=== PATIENT | female | born 1955 | race Caucasian/White ===

== ENCOUNTER → 2018-11-12 | Outpatient (CLI) | payer MEDICARE ==
--- NOTE | 2018-11-10 14:04 | NUR ---
ARRIVED PER WHEELCHAIR. TRANSFERED SELF TO RECLINER. PORT A CATH TO RIGHT UPPER CHEST. BARD POWER PORT. PORT ACCESSD FOR BLOOD DRAW FOR TYPE AND CROSS. PT HAS KNOWN PLATELET ANTIBIODIES. ORDR RECIEVED TO ADMINISTER SDPLT 2 UNITS ON Friday11/12/18. PORT ACCESSED WITH OUT DIFFICULTY. GOOD BRISK BLOOD RETURN NOTED WITH ASPERATION AND FLUSHED WITH EASE. JM FROM LAB HERE AND BLOOD DRAWN AND HANNDED OFF. PORT FLUSHED AND LEFT ACCESSED FOR USE WITH TRANSFUSION. DENEIS QUESTIONS OR NEEDS AT DISCHARGE.
[~2018-11-12] MED LIST: ADVAIR 250-501 EACH INH; DEFERASIROX PO; MUCINEX1200 MG PO; NEURONTIN 300300 M1 PO; NORCO 10-325 T1 EACH PO; PREDNISONE 20 M20 MG PO; SPIRIVA INH; ZYRTEC10 M4 PO
[2018-11-12 11:31] LABS: MCHC 34.8 g/dL (28.0-37.0)
[2018-11-12 11:33] LABS: HEMATOCRIT 27.4 % (37.0-47.0); HEMOGLOBIN 9.5 gm/dL (12.0-15.0); MCH 29.8 pg (26.0-34.0); MCV 85.7 fL (80.0-100.0); MPV 10.2 fl. (7.2-11.1); NUCLEATED RBCS 23 /100WBC; RDW-CV 16.5 % (10.5-14.5); WBC 3.6 thou/uL (4.0-11.0)
[2018-11-12 11:34] LABS: PLATELET COUNT* 4 thou/uL (150-400)
[2018-11-12 11:45] VITALS: BP 104/68; BP 130/96
[2018-11-12 12:15] LABS: ABSOLUTE LYMPHOCYTES 1.2 thou/uL (0.8-5.3); ABSOLUTE MONOCYTES 0.3 thou/uL (0.0-1.2); ATYPICAL LYMPHS 3 %; MYELOCYTES 2 %; PLATELET ESTIMATE DECREASED
[2018-11-12 12:16] LABS: ANISOCYTOSIS 1+; POIKILOCYTOSIS 1+; POLYCHROMASIA 1+
[2018-11-12 12:19] LABS: BLASTS 4 %
[2018-11-12 12:22] VITALS: BP 104/68; BP 108/63; BP 112/70
== END ==
LOC: M.INFUS 08:00
PROVIDERS: Internal Medicine Hematology & Oncology
DX: D46.22 Refractory anemia with excess of blasts 2 (principal); D69.6 Thrombocytopenia, unspecified

== ENCOUNTER → 2018-11-20 | Outpatient (CLI) | payer MEDICARE ==
[2018-11-20 11:44] VITALS: BP 101/46; BP 101/57; BP 102/58; BP 107/63
--- NOTE | 2018-11-20 11:55 | NUR ---
ARRIVED AMBULATORY. MADE SELF COMFORTABLE IN RECLINER. PORT A CATH ALREADY ACCESSED FROM USE AT [facility]. PORT PATENT WITH GOOD BLOOD RETURN AND EASY FLUSH. HISTORY REVIEWED AND CONSENT OBTAINED FOR BLOOD TRAQNSFUSION. VSS. TRANSFUSION OF PRBC STARTED AND RUNNING WELL. PRE MEDS PER ORDER.
[2018-11-20 13:44] VITALS: BP 100/43; BP 102/58; BP 107/63; BP 124/44
[2018-11-20 15:37] VITALS: BP 110/42; BP 112/69; BP 124/44
[2018-11-20 15:49] VITALS: BP 110/42; BP 112/55; BP 124/44
== END ==
LOC: M.INFUS 05:09
DX: D46.22 Refractory anemia with excess of blasts 2 (principal); D69.6 Thrombocytopenia, unspecified

== ENCOUNTER → 2018-11-26 | Outpatient (CLI) | payer MEDICARE ==
--- NOTE | 2018-11-24 15:25 | NUR ---
ARRIVED PER WHEELCHAIR. ORDER NOTED TO TYPE AND CROSS FOR 2 UNITS OF PLATELETS TO BE GIVEN 11/26/18. JM FROM LAB HERE AND BLOOD DRAWN FROM PORT A CATH. PORT FLUSHED AND LEFT ACCESSED FOR USE WITH FRIDAY'S TRANSFUSION. TOLERATED WELL. DENIES QUESTION OR NEEDS AT DISCHARGE.
[2018-11-26 11:28] VITALS: BP 106/64
[2018-11-26 11:46] LABS: HEMOGLOBIN 7.8 gm/dL (12.0-15.0); RDW-CV 15.7 % (10.5-14.5)
[2018-11-26 11:48] LABS: HEMATOCRIT 22.2 % (37.0-47.0); MCH 30.3 pg (26.0-34.0); MCHC 35.2 g/dL (28.0-37.0); MCV 86.1 fL (80.0-100.0); RBC 2.57 mil/uL (4.20-5.00)
[2018-11-26 11:51] LABS: PLATELET COUNT* < 3 thou/uL (150-400)
[2018-11-26 11:52] VITALS: BP 101/57; BP 116/64
[2018-11-26 11:52] LABS: WBC 1.6 thou/uL (4.0-11.0)
--- NOTE | 2018-11-26 12:34 | NUR ---
ARRIVED PER WHEELCHAIR. TRANSFERED SELF TO RECLINER. PORT TO RIGHT CHEST INTACT AND PATENT. PRE MED PER ORDER. 2 UNITS HLA MATCHED PLATELET COMPLETED AND TOLERATED WELL. PORT FLUSHED AND DEACCESSED. DENIES QUESTIONS OR NEEDS AT DISCHARGE.
[2018-11-26 12:45] LABS: ABSOLUTE LYMPHOCYTES 0.6 thou/uL (0.8-5.3); ABSOLUTE MONOCYTES 0.1 thou/uL (0.0-1.2); ABSOLUTE NEUTROPHILS 0.8 thou/uL (1.6-8.1); MYELOCYTES 4 %
[2018-11-26 12:46] LABS: PLATELET ESTIMATE DECREASED
[2018-11-26 12:49] LABS: ANISOCYTOSIS 1+; BLASTS 6 %; HYPOCHROMASIA 1+; MACROCYTES Occasional; POIKILOCYTOSIS 1+
== END ==
LOC: M.LAB 11-24 09:00 → M.INFUS 02:16
PROVIDERS: Internal Medicine Hematology & Oncology
DX: D46.22 Refractory anemia with excess of blasts 2 (principal); D69.6 Thrombocytopenia, unspecified

== ENCOUNTER → 2018-12-01 | Outpatient (CLI) | payer MEDICARE ==
[2018-12-01 10:22] VITALS: BP 106/59; BP 113/64; BP 98/56
[2018-12-01 12:15] VITALS: BP 100/58; BP 108/70; BP 110/62; BP 113/64; BP 114/55
--- NOTE | 2018-12-01 14:56 | NUR ---
PORT A CATH LEFT ACCESSED FOR USE LATER IN WEEK. BISHOP QUESTIONS OR NEEDS AT DISCHARGE.
== END ==
LOC: M.INFUS 04:57
DX: D46.22 Refractory anemia with excess of blasts 2 (principal); D69.6 Thrombocytopenia, unspecified

== ENCOUNTER → 2018-12-03 | Outpatient (CLI) | payer MEDICARE ==
[2018-12-03 10:55] VITALS: BP 100/58; BP 93/43
[2018-12-03 11:09] LABS: HEMOGLOBIN 8.8 gm/dL (12.0-15.0); RDW-CV 15.3 % (10.5-14.5)
[2018-12-03 11:10] LABS: HEMATOCRIT 25.1 % (37.0-47.0); MCHC 35.2 g/dL (28.0-37.0); MCV 85.3 fL (80.0-100.0); MPV 10.4 fl. (7.2-11.1); RBC 2.95 mil/uL (4.20-5.00); WBC 4.5 thou/uL (4.0-11.0)
[2018-12-03 11:20] VITALS: BP 100/58; BP 93/43; BP 99/61
--- NOTE | 2018-12-03 12:02 | NUR ---
ARRIVED AMBULATORY. MADE SELF COMFORTABLE. TRANSFUSION OF 2 UNITS OF PLATELET COMPLETED AND TOELRATED WELL. PORT FLUSHED AND DEACCESSED. DENEIS QUESTIONS OR NEEDS AT DISCHARGE.
== END ==
LOC: M.INFUS 05:29
PROVIDERS: Internal Medicine Hematology & Oncology
DX: D46.22 Refractory anemia with excess of blasts 2 (principal); D69.6 Thrombocytopenia, unspecified

== ENCOUNTER → 2018-12-08 | Outpatient (CLI) | payer MEDICARE ==
[2018-12-08 11:07] LABS: HEMOGLOBIN 8.6 gm/dL (12.0-15.0); MCH 29.5 pg (26.0-34.0)
[2018-12-08 11:09] LABS: HEMATOCRIT 25.4 % (37.0-47.0); MCV 86.9 fL (80.0-100.0); MPV 9.4 fl. (7.2-11.1); RBC 2.93 mil/uL (4.20-5.00); RDW-CV 15.9 % (10.5-14.5); WBC 8.2 thou/uL (4.0-11.0)
== END ==
LOC: M.INFUS 07:51
PROVIDERS: Internal Medicine Hematology & Oncology
DX: D46.22 Refractory anemia with excess of blasts 2 (principal); D69.6 Thrombocytopenia, unspecified

== ENCOUNTER → 2018-12-10 | Outpatient (CLI) | payer MEDICARE ==
[2018-12-10 10:48] LABS: HEMOGLOBIN 8.1 gm/dL (12.0-15.0)
[2018-12-10 10:49] LABS: MCH 29.4 pg (26.0-34.0); MCHC 33.8 g/dL (28.0-37.0); MPV 9.1 fl. (7.2-11.1); RBC 2.75 mil/uL (4.20-5.00); WBC 10.5 thou/uL (4.0-11.0)
[2018-12-10 11:12] VITALS: BP 110/61; BP 119/57
[2018-12-10 11:29] VITALS: BP 110/61; BP 119/57; BP 120/92
[2018-12-10 11:59] VITALS: BP 112/58; BP 112/75; BP 117/61; BP 119/57; BP 120/92
[2018-12-10 14:02] VITALS: BP 112/67; BP 112/75; BP 117/61; BP 128/65
--- NOTE | 2018-12-10 16:31 | NUR ---
ARRIVED PER WHEELCHAIR. REPORT FATIGUE. REQUESTING 2 UNITS PRBC AFTER PLATELET TRANSFUSION. CBC DRAWN PER ORDER. CRITICAL LABS CALLED TO DR. ADAMS. NEW ORDER RECIEVED TO ADMINISTER 2 UNITS PRBC IN ADDITION TO PLATLETS. PORT A CATH INTACT AND PATENT. ALL BLOOD PRODUCTS TRANSFUSED WITH OUT DIFFICULTY OR ADVERSE REACTION. PT REPORT FEELING BETTER. PORT FLUSHED AND DEACCESSED. DENIES QUESTIONS OR NEEDS AT DISCHARGE.
== END ==
LOC: M.INFUS 05:15
PROVIDERS: Internal Medicine Hematology & Oncology
DX: D46.22 Refractory anemia with excess of blasts 2 (principal); D69.6 Thrombocytopenia, unspecified

== ENCOUNTER → 2018-12-17 | Outpatient (CLI) | payer MEDICARE ==
--- NOTE | 2018-12-14 17:05 | NUR ---
1705 10 ML BLOOD ASPIRATED VIA ACCESSED PORTACATH. LABS DRAWN FOR BBK. PORTACATH FLUSHED WITH 20 ML SALINE. THEN PACKED WITH 5 ML 1:100 HEPARIN AND CLAMPED. PATIENT INSTRUCTED TO TELL INFUSION NURSE THAT HER PORT IS PACKED WITH HEPARIN.
[2018-12-17 15:12] VITALS: BP 115/58; BP 120/62
[2018-12-17 15:14] LABS: HEMOGLOBIN 8.4 gm/dL (12.0-15.0); MCV 85.2 fL (80.0-100.0); RDW-CV 15.9 % (10.5-14.5)
[2018-12-17 15:16] LABS: HEMATOCRIT 23.5 % (37.0-47.0); MCH 30.5 pg (26.0-34.0); MCHC 35.9 g/dL (28.0-37.0); MPV 11.5 fl. (7.2-11.1); RBC 2.76 mil/uL (4.20-5.00); WBC 6.4 thou/uL (4.0-11.0)
[2018-12-17 15:33] VITALS: BP 115/58; BP 124/64
== END ==
LOC: M.INFUS 05:31 → M.LAB 10:30 → M.INFUS 10:30
PROVIDERS: Internal Medicine Hematology & Oncology
DX: D46.22 Refractory anemia with excess of blasts 2 (principal); D69.6 Thrombocytopenia, unspecified

== ENCOUNTER → 2018-12-20 | Outpatient (CLI) | payer MEDICARE ==
--- NOTE | 2018-12-20 14:12 | NUR ---
RIGHT SIDED PORT ACCESSED WITHOUT DIFFICULTY. lABS DRAWN. POR LEFT ACCESSED, PACKED WITH 500 UNITS OF HEPARIN. PORT DRESSED IN A STERILE FASHION. PATIENT TOLERATED PROCEDURE WELL
== END ==
LOC: M.INFUS 07:00 → M.LAB 13:14
DX: D46.22 Refractory anemia with excess of blasts 2 (principal); D69.6 Thrombocytopenia, unspecified

== ENCOUNTER → 2018-12-21 | Outpatient (CLI) | payer MEDICARE ==
[2018-12-21 09:27] LABS: HEMATOCRIT 21.2 % (37.0-47.0); HEMOGLOBIN 7.5 gm/dL (12.0-15.0); RBC 2.5 mil/uL (4.20-5.00)
[2018-12-21 09:29] LABS: MCH 30.2 pg (26.0-34.0); MCHC 35.5 g/dL (28.0-37.0); MCV 85.1 fL (80.0-100.0); MPV 8.1 fl. (7.2-11.1); RDW-CV 15.6 % (10.5-14.5); WBC 4.1 thou/uL (4.0-11.0)
[2018-12-21 09:40] VITALS: BP 117/68; BP 127/64; BP 127/87
[2018-12-21 11:36] VITALS: BP 127/67; BP 128/74; BP 132/70; BP 139/62
--- NOTE | 2018-12-21 15:18 | NUR ---
ARRIVED AMBULATORY. PORT A CATH ALREADY ACCESSED. PORT PATENT AND INTACT. GAUZE DRESSING NOTED UNDER TRANSPARENT DRESSING. DRESSING CHANGE COMPLETED AND GAUZE REMOVED. 2 UNITS PRBC TRANSFUSION COMPELTED AND TOELRATED WELL. UP TO RESTROOM X3 POST LASIX. 100% OF LUNCH EATEN. DENIES QUESTIONS OR NEEDS AT DISCHARGE.
== END ==
LOC: M.INFUS 01:55
PROVIDERS: Internal Medicine Hematology & Oncology
DX: D46.22 Refractory anemia with excess of blasts 2 (principal); D69.6 Thrombocytopenia, unspecified

== ENCOUNTER → 2018-12-23 | Outpatient (CLI) | payer MEDICARE ==
[2018-12-23 12:15] VITALS: BP 132/70; BP 137/74
[2018-12-23 12:44] VITALS: BP 104/76; BP 137/74
--- NOTE | 2018-12-23 13:42 | NUR ---
ARRIVED PER WHEELCHAIR. TRANSFERED SELF TO RECLINER WITH EASE. PORT A CATH INTACT AND PATENT. PREMED PER ORDER. 2 UNIT HLA MATCHED PLATELET TRANSFUSION COMPLETED AND TOLERATED WELL. PORT FLUSHED AND LEFT ACCESSED PT [facility]. DENIES QUESTIONS OR NEEDS AT DISCHARGE.
== END ==
LOC: M.INFUS 05:24
DX: D46.22 Refractory anemia with excess of blasts 2 (principal); D69.6 Thrombocytopenia, unspecified

== ENCOUNTER → 2018-12-24 | Outpatient (CLI) | payer MEDICARE ==
[2018-12-24 13:59] LABS: HEMATOCRIT 26.2 % (37.0-47.0); HEMOGLOBIN 9.3 gm/dL (12.0-15.0); MCH 29.6 pg (26.0-34.0); MCHC 35.5 g/dL (28.0-37.0); MCV 83.5 fL (80.0-100.0); MPV 8.3 fl. (7.2-11.1); RBC 3.14 mil/uL (4.20-5.00); RDW-CV 15.8 % (10.5-14.5); WBC 3.5 thou/uL (4.0-11.0)
--- NOTE | 2018-12-24 14:12 | NUR ---
ARRIVED AMBULATORY. MADE SELF COMFORTABLE IN RECLINER. LABS DRAWN AND RESULTS EVALUATED. CRITICAL LABS CALLED TO DR. ADAMS. DENIES NEEDS AT DISCHARGE.
== END ==
LOC: M.INFUS 13:36 → M.LAB 14:00
PROVIDERS: Internal Medicine Hematology & Oncology
DX: D46.9 Myelodysplastic syndrome, unspecified (principal)

== ENCOUNTER → 2018-12-26 | Outpatient (CLI) | payer MEDICARE | LOC: M.LAB 16:04 | DX: D46.22 Refractory anemia with excess of blasts 2 (principal); D69.6 Thrombocytopenia, unspecified ==

== ENCOUNTER → 2018-12-29 | Outpatient (CLI) | payer MEDICARE ==
[2018-12-29 12:59] VITALS: BP 104/56; BP 108/76
[2018-12-29 13:05] LABS: HEMOGLOBIN 8.7 gm/dL (12.0-15.0)
[2018-12-29 13:07] LABS: HEMATOCRIT 24.5 % (37.0-47.0); MCH 29.7 pg (26.0-34.0); MCHC 35.7 g/dL (28.0-37.0); MCV 83.2 fL (80.0-100.0); MPV 10.4 fl. (7.2-11.1); NUCLEATED RBCS 11 /100WBC; RBC 2.94 mil/uL (4.20-5.00); RDW-CV 15.5 % (10.5-14.5)
[2018-12-29 13:09] LABS: PLATELET COUNT* 4 thou/uL (150-400)
[2018-12-29 13:22] VITALS: BP 106/78; BP 108/76; BP 110/74
[2018-12-29 13:28] LABS: ABSOLUTE EOSINOPHILS 0.2 thou/uL (0.0-0.7); ABSOLUTE LYMPHOCYTES 1.3 thou/uL (0.8-5.3); ABSOLUTE MONOCYTES 0.6 thou/uL (0.0-1.2); ANISOCYTOSIS 1+; BLASTS 1 %; MYELOCYTES 2 %; PLATELET ESTIMATE DECREASED; POIKILOCYTOSIS 1+; POLYCHROMASIA Occasional
== END ==
LOC: M.INFUS 05:24
PROVIDERS: Internal Medicine Hematology & Oncology
DX: D46.22 Refractory anemia with excess of blasts 2 (principal); D69.6 Thrombocytopenia, unspecified

== ENCOUNTER 2019-02-19 15:04 | Inpatient (IN) | payer MEDICARE ==
[~2019-02-19] VITALS: Ht 165.1 cm; Wt 83.0 kg
[2019-02-19 15:09] VITALS: BP 134/71
--- NOTE | 2019-02-19 16:45 | NUR ---
PORT ACCESSED BY CATHERINE MOSER FROM INFUSION.
[2019-02-19 16:49] LABS: HEMOGLOBIN 7.6 gm/dL (12.0-15.0); WBC 2.7 thou/uL (4.0-11.0)
[2019-02-19 16:51] LABS: HEMATOCRIT 21.4 % (37.0-47.0); MCHC 35.7 g/dL (28.0-37.0); MCV 81.2 fL (80.0-100.0); MPV 7.6 fl. (7.2-11.1); NUCLEATED RBCS 10 /100WBC; RBC 2.63 mil/uL (4.20-5.00); RDW-CV 14.7 % (10.5-14.5)
[2019-02-19 16:54] LABS: PLATELET COUNT* 6 thou/uL (150-400)
[2019-02-19 16:58] LABS: CALCIUM 8.6 mg/dL (8.5-10.1); CREATININE 0.9 mg/dL (0.6-1.3); POTASSIUM 4.1 mmol/L (3.5-5.1)
[2019-02-19 17:02] LABS: APTT 53.9 Seconds (25.0-31.3); INR 1.1; PROTIME 11.4 Seconds (9.20-11.50)
[2019-02-19 17:09] LABS: TOTAL BILIRUBIN 0.6 mg/dL (<0.1-1.0); TOTAL PROTEIN 7.6 g/dL (6.4-8.2)
[2019-02-19 17:24] LABS: ABSOLUTE EOSINOPHILS 0.1 thou/uL (0.0-0.7); ABSOLUTE LYMPHOCYTES 0.9 thou/uL (0.8-5.3); ABSOLUTE MONOCYTES 0.2 thou/uL (0.0-1.2); ABSOLUTE NEUTROPHILS 1.4 thou/uL (1.6-8.1); MYELOCYTES 11 %; PROMYELOCYTES 1 %
[2019-02-19 17:25] LABS: PLATELET ESTIMATE DECREASED
[2019-02-19 17:27] LABS: ANISOCYTOSIS 2+; POLYCHROMASIA 2+
[2019-02-19 17:37] LABS: BLASTS 8 %
[2019-02-19 18:22] VITALS: BP 122/71
[2019-02-19 18:50] VITALS: BP 104/55
--- NOTE | 2019-02-19 18:50 | NUR ---
PATIENT TO ROOM 310 FROM ER. ALERT AND ORIENTED X 4. VITALS STABLE. DR. FRANK TO BE PAGED FOR POSSIBLE TRANSFUSION ORDERS. REG DIET. AT BEDSIDE. PAC SL AT THIS TIME. ORIENTED TO CALL LIGHT. CALL LIGHT WITHIN REACH, WILL CONTINUE TO MONITOR.
[2019-02-19 20:39] VITALS: BP 103/54; BP 123/64; BP 128/63; BP 99/58
[2019-02-19 23:17] VITALS: BP 119/72; BP 120/66; BP 120/67; BP 121/67; BP 123/64
--- NOTE | 2019-02-20 05:36 | NUR ---
PATIENT SLEPT PART OF THE NIGHT. PATIENT RECEIVED 2 UNITS OF BLOOD WITH NO ADVERSE REACTIONS. PATIENT WAS GIVEN PAIN MEDICINE ONCE THIS SHIFT. WILL CONTINUE TO MONITOR.
[2019-02-20 08:05] VITALS: BP 106/70
[2019-02-20 12:18] VITALS: BP 102/60; BP 130/108
[2019-02-20 12:45] LABS: HEMOGLOBIN 9.3 gm/dL (12.0-15.0); MCV 82.4 fL (80.0-100.0); WBC 2.4 thou/uL (4.0-11.0)
[2019-02-20 12:47] LABS: HEMATOCRIT 26.4 % (37.0-47.0); MCH 29.1 pg (26.0-34.0); MCHC 35.3 g/dL (28.0-37.0); MPV 12.8 fl. (7.2-11.1); RBC 3.21 mil/uL (4.20-5.00); RDW-CV 15.2 % (10.5-14.5)
[2019-02-20 12:55] LABS: PLATELET COUNT* < 3 thou/uL (150-400)
[2019-02-20 13:15] VITALS: BP 102/60; BP 103/61; BP 113/51
[2019-02-20 16:13] VITALS: BP 103/66
--- NOTE | 2019-02-20 17:26 | NUR ---
PATIENT RESTING IN BED. PATIENT IS UP AD JAJA IN ROOM. PATIENT DENIES ANY PAIN. PATIENT HAD 2 UNITS OF PLATELETS THIS AFTERNOON WITHOUT INCIDENT. PATIENT HAS GOOD APPETITE. PATIENT DENIES ANY NEEDS AT THIS TIME. CALL LIGHT WITHIN REACH.
[2019-02-20 20:30] VITALS: BP 112/40
--- NOTE | 2019-02-21 05:44 | NUR ---
PATIENT SLEPT PART OF THE NIGHT. PATIENT WAS GIVEN PAIN MEDICINE ONCE. PATIENT IS POSSIBLY GOING HOME TODAY. WILL CONTINUE TO MONITOR.
[2019-02-21 08:15] VITALS: BP 107/61
[2019-02-21 09:54] LABS: HEMOGLOBIN 9.4 gm/dL (12.0-15.0); WBC 2.3 thou/uL (4.0-11.0)
[2019-02-21 09:56] LABS: MCH 28.6 pg (26.0-34.0); MCHC 34.7 g/dL (28.0-37.0); MCV 82.3 fL (80.0-100.0); MPV 8.9 fl. (7.2-11.1); RBC 3.27 mil/uL (4.20-5.00); RDW-CV 15.1 % (10.5-14.5)
[2019-02-21 10:27] VITALS: BP 107/61
--- NOTE | 2019-02-21 11:14 | EKG ---
[place] [address] ELECTROCARDIOGRAM REPORT Name: JOSE MANUEL THOMAS [facility] Room: [address] ADM IN M.R.#: [id number] Admission: 02/19/19 Attend Phys: Margarito Chu Discharge: Date of : 51 Report #: [id number] THIS REPORT FOR: //name// [facility] ED Test Date: 2019-02-19 Test Time: 15:43:50 Pat Name: JOSE MANUEL THOMAS Department: Room: [facility] Gender: F Folder Gluer Operator: : 1955 Requested By: Jones Ratliff Order Number: [id number] MD: Jv Rivera Measurements Intervals [place] Rate: 85 P: 72 [place]: 140 QRS: 38 QRSD: 79 T: 29 QT: 402 QTc: 478 Interpretive Statements Sinus rhythm Low voltage, precordial leads Abnormal R-wave progression, early transition Borderline T abnormalities, anterior leads No previous ECG available for comparison Electronically Signed On 02-21-2019 11:14:40 CLOTHES SEPARATOR by Jv Rivera [email or web address] <ELECTRONICALLY SIGNED> By: Jv Rivera MD, FACC 02/21/19 1114 1543 1543 Jv Rivera MD, FAC /EPI
[2019-02-21] MEDS ORDERED: NORCO 10-325 T1 EACH PO (11:34)
--- NOTE | 2019-02-21 12:00 | NUR ---
PATIENT DISCHARGED TO HOME. DISCHARGE PAPERS REVIEWED AND SIGNED. PRESCRIPTION AND INFORMATION SHEETS GIVEN. PORT PACKED WITH HEPARIN AND DEACCESSED. PATIENT DENIES ANY FURTHER NEEDS. PATIENT TAKEN BY WHEELCHAIR TO EXIT. LEFT WITH .
== END 2019-02-21 12:00 | disposition home or self-care (01) | DRG 811 ==
LOC: M.ERS 15:04 → M.TBA-ER 17:24 → M.3W 18:36
PROVIDERS: Family Medicine; ADMIT Internal Medicine
PROC: 30233N1 Transfusion of Nonautologous Red Blood Cells into Peripheral Vein, Percutaneous Approach (ICD-10-PCS; principal; 2019-02-19)
PROC: 30233R1 Transfusion of Nonautologous Platelets into Peripheral Vein, Percutaneous Approach (ICD-10-PCS; 2019-02-20)
DX: D46.9 Myelodysplastic syndrome, unspecified (principal); D61.810 Antineoplastic chemotherapy induced pancytopenia; M72.6 Necrotizing fasciitis; E44.0 Moderate protein-calorie malnutrition; T45.4X5A Adverse effect of iron and its compounds, initial encounter; F17.210 Nicotine dependence, cigarettes, uncomplicated; J45.909 Unspecified asthma, uncomplicated; M79.89 Other specified soft tissue disorders; T45.1X5A Adverse effect of antineoplastic and immunosuppressive drugs, initial encounter; Z90.710 Acquired absence of both cervix and uterus; Z90.49 Acquired absence of other specified parts of digestive tract; Z93.2 Ileostomy status; Z88.8 Allergy status to other drugs, medicaments and biological substances; Y92.89 Other specified places as the place of occurrence of the external cause; Z68.30 Body mass index [BMI] 30.0-30.9, adult

== ENCOUNTER 2019-03-01 19:05 | Inpatient (IN) | payer MEDICARE ==
[~2019-03-01] VITALS: Ht 165.1 cm; Wt 84.4 kg
[2019-03-01 19:31] VITALS: BP 101/59
[2019-03-01 20:00] LABS: MCH 28.1 pg (26.0-34.0)
[2019-03-01 20:01] LABS: MCHC 33.9 g/dL (28.0-37.0); MPV 9.6 fl. (7.2-11.1); NUCLEATED RBCS 29 /100WBC; RBC 2.05 mil/uL (4.20-5.00); RDW-CV 15.6 % (10.5-14.5); WBC 16.9 thou/uL (4.0-11.0)
[2019-03-01 20:04] LABS: HEMOGLOBIN 5.8 gm/dL (12.0-15.0); PLATELET COUNT* 4 thou/uL (150-400)
[2019-03-01 20:06] LABS: CALCIUM 8.1 mg/dL (8.5-10.1); CREATININE 1.2 mg/dL (0.6-1.3); POTASSIUM 4.6 mmol/L (3.5-5.1)
[2019-03-01 20:17] LABS: ALBUMIN 2.8 g/dL (3.4-5.0); TOTAL BILIRUBIN 0.9 mg/dL (<0.1-1.0); TOTAL PROTEIN 6.9 g/dL (6.4-8.2)
[2019-03-01 20:23] LABS: INR 1.2; PROTIME 12.6 Seconds (9.20-11.50)
[2019-03-01 20:43] LABS: ABSOLUTE LYMPHOCYTES 5.9 thou/uL (0.8-5.3); ABSOLUTE MONOCYTES 0.3 thou/uL (0.0-1.2); ABSOLUTE NEUTROPHILS 9.6 thou/uL (1.6-8.1); MYELOCYTES 10 %; PLATELET ESTIMATE DECREASED
[2019-03-01 20:44] LABS: BLASTS 6 %
[2019-03-01 20:46] LABS: POLYCHROMASIA 1+
[2019-03-01 21:33] LABS: URINE BILIRUBIN NEGATIVE (Negative); URINE BLOOD NEGATIVE (Negative); URINE CLARITY CLEAR; URINE COLOR YELLOW; URINE GLUCOSE-RANDOM NEGATIVE (Negative); URINE KETONES NEGATIVE (Negative); URINE LEUKOCYTES-REFLEX NEGATIVE (Negative); URINE NITRITE-REFLEX NEGATIVE (Negative); URINE PROTEIN NEGATIVE (Negative); URINE SPECIFIC GRAVITY 1.015 (1.005-1.030); URINE UROBILINOGEN 0.2 E.U./dl (0.2-1.0)
[2019-03-01 21:46] VITALS: BP 105/65
[2019-03-01 22:31] VITALS: BP 95/54
[2019-03-02] VITALS (22 sets, daily range): BP systolic 89–125; BP diastolic 36–76
[2019-03-02 06:03] LABS: MCH 29.3 pg (26.0-34.0); MCHC 34.3 g/dL (28.0-37.0); MCV 85.5 fL (80.0-100.0); MPV 9.1 fl. (7.2-11.1); NUCLEATED RBCS 28 /100WBC; RBC 2.03 mil/uL (4.20-5.00); RDW-CV 16.4 % (10.5-14.5); WBC 14.1 thou/uL (4.0-11.0)
[2019-03-02 06:07] LABS: HEMATOCRIT 17.4 % (37.0-47.0); PLATELET COUNT* 6 thou/uL (150-400)
[2019-03-02 07:49] LABS: ABSOLUTE EOSINOPHILS 0.8 thou/uL (0.0-0.7); ABSOLUTE MONOCYTES 1.1 thou/uL (0.0-1.2); METAMYELOCYTES 5 %; MYELOCYTES 9 %
[2019-03-02 07:50] LABS: ABSOLUTE LYMPHOCYTES 1.4 thou/uL (0.8-5.3); ATYPICAL LYMPHS 4 %
[2019-03-02 07:52] LABS: POLYCHROMASIA 2+
[2019-03-02 07:53] LABS: PLATELET ESTIMATE DECREASED
[2019-03-02 07:57] LABS: ANISOCYTOSIS 2+
[2019-03-02 07:58] LABS: HYPOCHROMASIA 3+
[2019-03-02 08:00] LABS: OVALOCYTES 1+; SCHISTOCYTES 1+
[2019-03-02 08:07] LABS: BLASTS 19 %
--- NOTE | 2019-03-02 09:55 | EKG ---
[place] [address] ELECTROCARDIOGRAM REPORT Name: JOSE MANUEL THOMAS MANNY Room: [address] ADM IN M.R.#: [id number] Admission: 03/01/19 Attend Phys: Lynda Parish Discharge: Date of : 51 Report #: [id number] THIS REPORT FOR: //name// [facility] ED Test Date: 2019-03-01 Test Time: 19:45:45 Pat Name: JOSE MANUEL THOMAS Department: Room: [facility] Gender: F Manufacturing Test Technician: [place] : 1955 Requested By: Kaelyn Medrano Order Number: [id number] MD: Jv Rivera Measurements Intervals [place] Rate: 100 P: 63 [place]: 136 QRS: 38 QRSD: 85 T: 34 QT: 345 QTc: 445 Interpretive Statements Sinus tachycardia nonspecific st changes Low voltage, extremity and precordial leads Abnormal R-wave progression, early transition Compared to ECG 02/19/2019 15:43:50 Sinus rhythm no longer present Electronically Signed On 03-02-2019 9:55:01 HAT LINING PASTER by Jv Rivera [email or web address] <ELECTRONICALLY SIGNED> By: Jv Rivera MD, FAC 03/02/19 0955 44 44 Jv Rivera MD, [facility] /EPI
[2019-03-02 19:18] LABS: HEMATOCRIT 24.4 % (37.0-47.0); HEMOGLOBIN 8.4 gm/dL (12.0-15.0); MCH 29.1 pg (26.0-34.0); MCHC 34.6 g/dL (28.0-37.0); MCV 84.2 fL (80.0-100.0); MPV 7.9 fl. (7.2-11.1); RBC 2.9 mil/uL (4.20-5.00); RDW-CV 15.5 % (10.5-14.5); WBC 15.1 thou/uL (4.0-11.0)
[2019-03-03] VITALS (21 sets, daily range): BP systolic 76–121; BP diastolic 40–69
[2019-03-03 05:27] LABS: HEMOGLOBIN 8.8 gm/dL (12.0-15.0); MCV 84.4 fL (80.0-100.0); RBC 3.02 mil/uL (4.20-5.00)
[2019-03-03 05:29] LABS: HEMATOCRIT 25.4 % (37.0-47.0); MCHC 34.4 g/dL (28.0-37.0); MPV 7.6 fl. (7.2-11.1); RDW-CV 16.1 % (10.5-14.5); WBC 13.4 thou/uL (4.0-11.0)
[2019-03-03 05:30] LABS: CALCIUM 7.4 mg/dL (8.5-10.1); CREATININE 0.8 mg/dL (0.6-1.3); MAGNESIUM 1.5 mg/dL (1.8-2.4); POTASSIUM 3.8 mmol/L (3.5-5.1)
[2019-03-03 12:23] LABS: HEMOGLOBIN 9.9 gm/dL (12.0-15.0); MCHC 34.9 g/dL (28.0-37.0)
[2019-03-03 12:24] LABS: HEMATOCRIT 28.3 % (37.0-47.0); MCH 30.1 pg (26.0-34.0); MPV 7.3 fl. (7.2-11.1); RBC 3.28 mil/uL (4.20-5.00); RDW-CV 16.1 % (10.5-14.5); WBC 23.1 thou/uL (4.0-11.0)
[2019-03-08 14:09] LABS: HEMOGLOBIN 5.8 g/dL (11.1-15.9)
== END 2019-03-03 13:40 | disposition home or self-care (01) | DRG 377 ==
LOC: M.ERS 19:05 → M.ICU 20:23 → M.TBA-ER 20:23 → M.ICU 22:12
PROVIDERS: Emergency Medicine; Internal Medicine; ADMIT Family Medicine
PROC: 30233N1 Transfusion of Nonautologous Red Blood Cells into Peripheral Vein, Percutaneous Approach (ICD-10-PCS; 2019-03-02)
PROC: 30233R1 Transfusion of Nonautologous Platelets into Peripheral Vein, Percutaneous Approach (ICD-10-PCS; 2019-03-02)
PROC: 0DJ08ZZ Inspection of Upper Intestinal Tract, Via Natural or Artificial Opening Endoscopic (ICD-10-PCS; principal; 2019-03-03)
DX: K29.71 Gastritis, unspecified, with bleeding (principal); N17.0 Acute kidney failure with tubular necrosis; D61.818 Other pancytopenia; E44.0 Moderate protein-calorie malnutrition; K76.6 Portal hypertension; F17.210 Nicotine dependence, cigarettes, uncomplicated; D46.9 Myelodysplastic syndrome, unspecified; J44.9 Chronic obstructive pulmonary disease, unspecified; K31.89 Other diseases of stomach and duodenum; Z88.8 Allergy status to other drugs, medicaments and biological substances; Z68.31 Body mass index [BMI] 31.0-31.9, adult; Z90.49 Acquired absence of other specified parts of digestive tract; Z93.2 Ileostomy status

== ENCOUNTER 2019-03-28 04:50 | Inpatient (IN) | payer MEDICARE ==
[2019-03-28] VITALS (44 sets, daily range): BP systolic 75–122; BP diastolic 18–68
[~2019-03-28] VITALS: Ht 165.1 cm; Wt 87.5 kg
[2019-03-28 05:26] LABS: URINE BILIRUBIN NEGATIVE (Negative); URINE BLOOD NEGATIVE (Negative); URINE CLARITY CLEAR; URINE COLOR YELLOW; URINE GLUCOSE-RANDOM NEGATIVE (Negative); URINE KETONES NEGATIVE (Negative); URINE LEUKOCYTES-REFLEX NEGATIVE (Negative); URINE NITRITE-REFLEX NEGATIVE (Negative); URINE PROTEIN NEGATIVE (Negative); URINE SPECIFIC GRAVITY 1.015 (1.005-1.030); URINE UROBILINOGEN 0.2 E.U./dl (0.2-1.0)
[2019-03-28 05:29] LABS: HEMOGLOBIN 8.2 gm/dL (12.0-15.0)
[2019-03-28 05:30] LABS: HEMATOCRIT 23.8 % (37.0-47.0); MCH 28.8 pg (26.0-34.0); MCHC 34.3 g/dL (28.0-37.0); MPV 9.1 fl. (7.2-11.1); NUCLEATED RBCS 14 /100WBC; RBC 2.83 mil/uL (4.20-5.00); RDW-CV 17.5 % (10.5-14.5)
[2019-03-28 05:35] LABS: PLATELET COUNT* 6 thou/uL (150-400)
[2019-03-28 05:38] LABS: CALCIUM 8.8 mg/dL (8.5-10.1); POTASSIUM 4.8 mmol/L (3.5-5.1)
[2019-03-28 05:49] LABS: ALBUMIN 2.8 g/dL (3.4-5.0); TOTAL PROTEIN 7.5 g/dL (6.4-8.2)
[2019-03-28 05:50] LABS: INR 1.2
[2019-03-28 07:07] LABS: ABSOLUTE LYMPHOCYTES 7.2 thou/uL (0.8-5.3); ABSOLUTE MONOCYTES 4.7 thou/uL (0.0-1.2); ABSOLUTE NEUTROPHILS 6.1 thou/uL (1.6-8.1); ATYPICAL LYMPHS 12 %; MYELOCYTES 1 %; PROMYELOCYTES 1 %
[2019-03-28 07:12] LABS: ANISOCYTOSIS 1+; PLATELET ESTIMATE DECREASED
[2019-03-28 07:14] LABS: POLYCHROMASIA 1+
[2019-03-28 11:27] LABS: RDW-CV 17.3 % (10.5-14.5)
[2019-03-28 11:28] LABS: MCH 28.2 pg (26.0-34.0); MCHC 33.7 g/dL (28.0-37.0); MCV 83.8 fL (80.0-100.0); MPV 8.6 fl. (7.2-11.1); RBC 2.34 mil/uL (4.20-5.00); WBC 13.3 thou/uL (4.0-11.0)
[2019-03-28 11:40] LABS: HEMATOCRIT 19.6 % (37.0-47.0); HEMOGLOBIN 6.6 gm/dL (12.0-15.0)
--- NOTE | 2019-03-28 12:21 | EKG ---
[place] [address] ELECTROCARDIOGRAM REPORT Name: JOSE MANUEL THOMAS Room: [address] ADM IN M.R.#: [id number] Admission: 03/28/19 Attend Phys: Rikki Nieves MD Discharge: Date of : 51 Report #: [id number] THIS REPORT FOR: //name// [facility] ED Test Date: 2019-03-28 Test Time: 05:03:37 Pat Name: JOSE MANUEL THOMAS Department: Room: [facility] Gender: F Wardrobe Specialty Worker: [place] : 1955 Requested By: Kaelyn Medrano Order Number: [id number] MD: Alen Le Measurements Intervals [place] Rate: 116 P: 79 [place]: 134 QRS: -17 QRSD: 112 T: QT: 383 QTc: 533 Interpretive Statements Sinus tachycardia Borderline intraventricular conduction delay Low voltage, extremity and precordial leads RSR' in V1 or V2, probably normal variant Minimal ST depression, diffuse leads Prolonged QT interval Baseline wander in lead(s) V3 Compared to ECG 03/01/2019 19:45:45 RSR' in V1 or V2 now present Prolonged QT interval now present ST (T wave) deviation still present Electronically Signed On 03-28-2019 12:20:56 DIRECTOR EMPLOYMENT by Alen Le [email or web address] <ELECTRONICALLY SIGNED> By: Dylan Le MD, [facility] 03/28/19 1220 0503 0503 Dylan Le MD, [facility] /EPI
[2019-03-28 19:38] LABS: HEMOGLOBIN 7.4 gm/dL (12.0-15.0); MCH 28.9 pg (26.0-34.0); MCHC 33.8 g/dL (28.0-37.0); MCV 85.3 fL (80.0-100.0); MPV 8.2 fl. (7.2-11.1); RBC 2.58 mil/uL (4.20-5.00); RDW-CV 17.4 % (10.5-14.5); WBC 13.8 thou/uL (4.0-11.0)
[2019-03-29] VITALS (28 sets, daily range): BP systolic 94–126; BP diastolic 37–79
[2019-03-29 04:48] LABS: CALCIUM 7.3 mg/dL (8.5-10.1); CREATININE 0.7 mg/dL (0.6-1.3); MAGNESIUM 1.2 mg/dL (1.8-2.4); RDW-CV 17.4 % (10.5-14.5); WBC 11.7 thou/uL (4.0-11.0)
[2019-03-29 04:51] LABS: MCH 29.7 pg (26.0-34.0); MCHC 34.5 g/dL (28.0-37.0); MCV 86.2 fL (80.0-100.0); MPV 8.7 fl. (7.2-11.1); RBC 2.67 mil/uL (4.20-5.00)
[2019-03-29 04:57] LABS: POTASSIUM 3.7 mmol/L (3.5-5.1)
--- NOTE | 2019-03-29 18:14 | CON ---
[address] [address] CONSULTATION Name: JOSE MANUEL THOMAS Room: [address] IN M.R.#: [id number] Admission: 03/28/19 Attend Phys: Rikki Nieves MD Discharge: Date of : 51 Report #: [id number] THIS REPORT FOR: //name// CC: Rikki Mcintoshgood DATE OF SERVICE: 03/28/2019 HISTORY OF PRESENT ILLNESS: This is a pleasant 63-year-old female with history of myelodysplastic syndrome, multiple cytopenias including thrombocytopenia, who is presenting with melenic stool from her ostomy. The patient reports that she was diagnosed with myelodysplastic syndrome 2 years back. Three years back, patient had severe anemia and had undergone multiple EGDs and colonoscopies. During one of the colonoscopies, the patient had a perforation, which led to the ostomy placement. The patient reports that since then reversal of the ostomy was not attempted. The patient reports that she does not have any abdominal pain, nausea, vomiting or diarrhea. She does begin noticing black colored output from her ostomy. PAST MEDICAL HISTORY: Significant for anemia, myelodysplastic syndrome, thrombocytopenia. PAST SURGICAL HISTORY: Significant for colonic resection secondary to perforation. SOCIAL HISTORY: The patient denies smoking, alcohol or recreational drug use. FAMILY HISTORY: No history of colon cancer or García-related neoplasia. REVIEW OF SYSTEMS: A comprehensive 10-point review of systems is negative except for what was mentioned in the HPI. PHYSICAL EXAMINATION: VITAL SIGNS: Temperature 36.6, pulse rate 106, blood pressure 103/52, respirations 21. GENERAL: The patient is alert, awake, oriented x 3. HEENT: Pupils are equal, round, reactive to light and accommodation. Mucous membranes are moist. There is no congestion. LUNGS: Clear to auscultation bilaterally. CARDIOVASCULAR: Rate and rhythm regular, S1, S2 present. ABDOMEN: Soft. Ostomy is seen in the right lower quadrant with black colored output seen. No tenderness, guarding or rigidity. EXTREMITIES: Warm, well perfused. LABORATORY DATA: Hemoglobin 8.2, hematocrit 23.8, platelet count 6, WBC count 18.0. The patient's baseline hemoglobin prior to her previous discharge was 9. [place] [address] CONSULTATION Name: JOSE MANUEL THOMAS [facility] Room: [address] [place] [facility].#: [id number] Admission: 03/28/19 Attend Phys: Rikki Nieves MD Discharge: Date of : 51 Report #: [id number] The patient had an EGD performed by Dr. Jackson during her previous admission a few weeks back. At that time, the EGD demonstrated diffuse gastritis suggestive of portal hypertensive gastropathy, but due to the lower level of her platelets, no biopsies were obtained. ASSESSMENT AND PLAN: Pleasant 63-year-old female with history of myelodysplastic syndrome, who is transfusion dependent with multiple cytopenias including thrombocytopenia, presenting with melenic output from the ostomy bag. The patient's platelet count is 6 and this precludes any role for endoscopy. I would keep her on a Protonix drip, transfuse to keep her hemoglobin above 8 and platelet count about 20. Preferably the platelet count should be more than 50 in setting of acute bleeding, but this goal may be difficult to achieve in the setting of her myelodysplastic syndrome. I would place the patient on a regular diet for now. Thank you for this consultation. <ELECTRONICALLY SIGNED> By: Luis Carter MD 03/29/19 1814 1142 [id number] Carter MD /nt
[2019-03-30] VITALS (11 sets, daily range): BP systolic 104–128; BP diastolic 43–83
[2019-03-30 05:10] LABS: HEMATOCRIT 23.1 % (37.0-47.0); MCH 29.8 pg (26.0-34.0); MCHC 34.6 g/dL (28.0-37.0); MCV 86.1 fL (80.0-100.0); RBC 2.68 mil/uL (4.20-5.00); RDW-CV 17.5 % (10.5-14.5); WBC 11.8 thou/uL (4.0-11.0)
[2019-03-30 05:20] LABS: CALCIUM 8.3 mg/dL (8.5-10.1); CREATININE 0.8 mg/dL (0.6-1.3); MAGNESIUM 1.2 mg/dL (1.8-2.4); POTASSIUM 3.5 mmol/L (3.5-5.1)
[2019-03-31 00:20] VITALS: BP 119/49
[2019-03-31 04:36] LABS: MAGNESIUM 2.1 mg/dL (1.8-2.4); POTASSIUM 4.4 mmol/L (3.5-5.1)
[2019-03-31 04:39] VITALS: BP 113/61
[2019-03-31 07:20] VITALS: BP 116/61
[2019-03-31 08:10] LABS: HEMOGLOBIN 7.5 gm/dL (12.0-15.0)
[2019-03-31 08:11] LABS: HEMATOCRIT 22.1 % (37.0-47.0); MCH 29.5 pg (26.0-34.0); MCHC 33.9 g/dL (28.0-37.0); MCV 86.8 fL (80.0-100.0); MPV 8.4 fl. (7.2-11.1); RBC 2.55 mil/uL (4.20-5.00); RDW-CV 17.8 % (10.5-14.5); WBC 10.6 thou/uL (4.0-11.0)
[2019-03-31 10:07] VITALS: BP 121/66; BP 135/110
[2019-03-31 12:44] LABS: HEMOGLOBIN 8.2 gm/dL (12.0-15.0)
[2019-03-31 12:46] LABS: MCH 29.7 pg (26.0-34.0); MCHC 34.2 g/dL (28.0-37.0); MCV 86.7 fL (80.0-100.0); MPV 7.6 fl. (7.2-11.1); NUCLEATED RBCS 57 /100WBC; RBC 2.77 mil/uL (4.20-5.00); RDW-CV 17.8 % (10.5-14.5); WBC 12.9 thou/uL (4.0-11.0)
[2019-03-31 14:29] LABS: ABSOLUTE LYMPHOCYTES 3.9 thou/uL (0.8-5.3); ABSOLUTE MONOCYTES 1.3 thou/uL (0.0-1.2); ABSOLUTE NEUTROPHILS 7.7 thou/uL (1.6-8.1); ATYPICAL LYMPHS 3 %; METAMYELOCYTES 8 %; MYELOCYTES 8 %; PROMYELOCYTES 1 %
[2019-03-31 14:31] LABS: PLATELET ESTIMATE DECREASED
[2019-03-31 14:32] LABS: ANISOCYTOSIS 2+
[2019-03-31 14:36] LABS: MACROCYTES Occasional; MICROCYTES Occasional; POLYCHROMASIA 1+
[2019-03-31 14:39] LABS: PLATELET COUNT* 37 thou/uL (150-400)
[2019-03-31 16:06] VITALS: BP 108/65
[2019-03-31] MEDS ORDERED: PROTONIX40 M1 PO (16:08)
[2019-03-31 16:33] VITALS: BP 108/65
== END 2019-03-31 16:45 | disposition home or self-care (01) | DRG 378 ==
LOC: M.ERS 04:50 → M.ICU 06:53 → M.TBA-ER 06:53 → M.ICU 08:12 → M.ORTHSURG 03-30 17:33
PROVIDERS: Emergency Medicine; Internal Medicine; Internal Medicine Hematology & Oncology; ADMIT Internal Medicine
PROC: 30233N1 Transfusion of Nonautologous Red Blood Cells into Peripheral Vein, Percutaneous Approach (ICD-10-PCS; principal; 2019-03-28)
PROC: 30233R1 Transfusion of Nonautologous Platelets into Peripheral Vein, Percutaneous Approach (ICD-10-PCS; principal; 2019-03-28)
DX: K29.01 Acute gastritis with bleeding (principal); K76.6 Portal hypertension; D69.3 Immune thrombocytopenic purpura; K31.89 Other diseases of stomach and duodenum; D46.9 Myelodysplastic syndrome, unspecified; E66.9 Obesity, unspecified; I95.9 Hypotension, unspecified; F17.210 Nicotine dependence, cigarettes, uncomplicated; Z90.710 Acquired absence of both cervix and uterus; Z90.49 Acquired absence of other specified parts of digestive tract; Z93.2 Ileostomy status; Z79.899 Other long term (current) drug therapy; Z88.8 Allergy status to other drugs, medicaments and biological substances; Z72.89 Other problems related to lifestyle; Z93.3 Colostomy status; Z68.32 Body mass index [BMI] 32.0-32.9, adult

== ENCOUNTER 2019-04-14 03:33 | Inpatient (IN) | payer MEDICARE ==
[~2019-04-14] VITALS: Ht 165.1 cm; Wt 87.3 kg
[2019-04-14] VITALS (9 sets, daily range): BP systolic 98–129; BP diastolic 36–77
[~2019-04-14 03:33] MED LIST changes: +PROTONIX40 M1 PO
[2019-04-14] MEDS ORDERED: ERYTHROMYCIN500 MG PO (03:44)
--- NOTE | 2019-04-14 04:02 | NUR ---
PT HAS R PAC THAT IS ACCESSED FROM RECIEIVING PLTS YESTERDAY.
[2019-04-14 04:22] LABS: MCH 29.9 pg (26.0-34.0); MCV 85.4 fL (80.0-100.0); NUCLEATED RBCS 12 /100WBC; RBC 2.27 mil/uL (4.20-5.00); RDW-CV 16.3 % (10.5-14.5); WBC 12.5 thou/uL (4.0-11.0)
[2019-04-14 04:30] LABS: CALCIUM 7.6 mg/dL (8.5-10.1); CREATININE 0.9 mg/dL (0.6-1.3); POTASSIUM 4.3 mmol/L (3.5-5.1)
[2019-04-14 04:31] LABS: HEMOGLOBIN 6.8 gm/dL (12.0-15.0)
[2019-04-14 04:32] LABS: HEMATOCRIT 19.4 % (37.0-47.0); PLATELET COUNT* 4 thou/uL (150-400)
[2019-04-14 04:35] LABS: ALBUMIN 2.6 g/dL (3.4-5.0); TOTAL BILIRUBIN 0.7 mg/dL (<0.1-1.0); TOTAL PROTEIN 7.3 g/dL (6.4-8.2)
[2019-04-14 05:12] LABS: INR 1.2; PROTIME 12.1 Seconds (9.20-11.50)
[2019-04-14 06:29] LABS: ABSOLUTE EOSINOPHILS 0.1 thou/uL (0.0-0.7); ABSOLUTE LYMPHOCYTES 2.3 thou/uL (0.8-5.3); ANISOCYTOSIS 1+; ATYPICAL LYMPHS 5 %; ATYPICAL MONONUCLEARS 1 %; BLASTS 1 %; HYPOCHROMASIA 1+; MYELOCYTES 3 %; PLATELET ESTIMATE DECREASED; POIKILOCYTOSIS 1+; POLYCHROMASIA Occasional; PROMYELOCYTES 1 %
--- NOTE | 2019-04-14 07:34 | NUR ---
RECEIVED REPORT FROM LAVENDER FARM WORKER PRUDENCE AT 0625. PT ARRIVED TO UNIT VIA BED AT 0655. PT AAOX4, SR ON SPORTS NUTRITIONIST. NURSING ASSESSMENT COMPLETED. PT VOICED NO CONCERNS. CALL LIGHT WITHIN REACH. NEGATIVE SEPSIS SCREENING. REPORT GIVEN TO OMEGA ALEXANDER.
--- NOTE | 2019-04-14 10:20 | EKG ---
[place] [address] ELECTROCARDIOGRAM REPORT Name: JOSE MANUEL THOMAS [facility] Room: [address] ADM IN M.R.#: [id number] Admission: 04/14/19 Attend Phys: Lynda Parish Discharge: Date of : 51 Report #: [id number] THIS REPORT FOR: //name// [facility] ED Test Date: 2019-04-14 Test Time: 03:51:39 Pat Name: JOSE MANUEL THOMAS Department: Room: [address] Gender: F Space Systems Operations Manager: [place] : 1955 Requested By: Kaelyn Medrano Order Number: [id number] Reading MD: Jv Rivera Measurements Intervals [place] Rate: 95 P: 62 [place]: 134 QRS: 34 QRSD: 58 T: 21 QT: 417 QTc: 525 Interpretive Statements Sinus rhythm Low voltage, precordial leads Borderline T abnormalities, anterior leads Prolonged QT interval Compared to ECG 03/28/2019 05:03:37 Sinus tachycardia no longer present Electronically Signed On 04-14-2019 10:20:27 FAMILY SUPPORT WORKER by Jv Rivera [email or web address] <ELECTRONICALLY SIGNED> By: Jv Rivera MD, [facility] 04/14/19 1020 0351 0351 Jv Rivera MD, [facility] /EPI
--- NOTE | 2019-04-14 17:27 | NUR ---
VSS, ASSUMED CARE IN THE AM, ASSESSMENT PERFORMED AND CHARTED, FALL PRECAUTIONS IN PLACE AND CALL LIGHT IN REACH, PT IS TRACING SR ON THE MONITOR, PT IS ON RA, DENIES ANY PAIN, HER GAOL IS TO RECIEVE BLOOD, PT IS UP AD JAJA, SHE HAS ILEOSTOMY, HER BAG FILLS UP WITH RED DARK BLOOD, WILL FOLLOW WITH PLAN OF CARE.
[2019-04-15] VITALS (7 sets, daily range): BP systolic 100–125; BP diastolic 43–65
[2019-04-15 05:21] LABS: MCH 29.3 pg (26.0-34.0); MCHC 35.3 g/dL (28.0-37.0); MPV 13.1 fl. (7.2-11.1); RBC 2.12 mil/uL (4.20-5.00); RDW-CV 16.9 % (10.5-14.5); WBC 11.8 thou/uL (4.0-11.0)
--- NOTE | 2019-04-15 05:36 | NUR ---
ASSUMED CARE OF PATIENT AT APPROX 1930. ALERT AND ORIENTED X4. ASESSMENT COMPLETED AND CHARTED. VSS ON ROOM AIR. COMPLAINT OF FOOT PAIN ADDRESSED WITH PERCOCET. BLOOD TRANSFUSION FINISHED AND CHARTED. PROTONIX DRIP INFUSED ORDERED. PATIENT SLEPT THROUGHOUT THE NIGHT WITH NO FURTHER COMPLAINTS VOICED. SINUS RYTHM ON THE MONITOR. CRITICAL LABS JUST CALLED AT 0538, SEE CHARTING. PATIENT IS UP AD JAJA AND DOES ALL CARES FOR HER ILEOSTOMY. CALL LIGHT IS WITHIN REACH. HOURLY ROUNDS COMPLETED. WILL CONTINUE WITH PLAN OF CARE.
[2019-04-15 05:39] LABS: ALBUMIN 2.1 g/dL (3.4-5.0); CALCIUM 7.1 mg/dL (8.5-10.1); CREATININE 0.8 mg/dL (0.6-1.3); HEMATOCRIT 17.6 % (37.0-47.0); HEMOGLOBIN 6.2 gm/dL (12.0-15.0); MAGNESIUM 1.4 mg/dL (1.8-2.4); PLATELET COUNT* < 3 thou/uL (150-400); POTASSIUM 3.6 mmol/L (3.5-5.1); TOTAL BILIRUBIN 0.6 mg/dL (<0.1-1.0)
--- NOTE | 2019-04-15 14:46 | NUR ---
Pt is A&O. Resides at home with , dtr and son. in room at bedside. Pt uses a walker for mobility in the house, keeps a wc in the car for longer distances. Pt is current with [facility], but does not want to continue at [facility]. Pt is current with [facility] and wants to resume at [facility]. Pt has home o2 concentrator, neb and Inogen, Pt states that she paid out of pocket for all 3. Pt informed that Drs have given her a grim prognosis and have instructed her to "start planning." Pt tearful but open to discuss the different levels of hospice care. Pt states that she plans to get an outside of the hospital DNR signed at her next Dr appt next week. Goal is home at [place]. Following.
[2019-04-15 16:53] LABS: MPV 7.7 fl. (7.2-11.1); RBC 1.78 mil/uL (4.20-5.00); RDW-CV 16.9 % (10.5-14.5)
[2019-04-15 16:54] LABS: MCH 29.7 pg (26.0-34.0); MCHC 35.8 g/dL (28.0-37.0); MCV 83.1 fL (80.0-100.0); WBC 10.1 thou/uL (4.0-11.0)
[2019-04-15 16:58] LABS: HEMOGLOBIN 5.3 gm/dL (12.0-15.0)
[2019-04-15 16:59] LABS: HEMATOCRIT 14.8 % (37.0-47.0)
[2019-04-16] VITALS (7 sets, daily range): BP systolic 99–128; BP diastolic 43–82
[2019-04-16 03:15] LABS: MCH 29.2 pg (26.0-34.0); MPV 7.7 fl. (7.2-11.1); RBC 2.06 mil/uL (4.20-5.00); WBC 8.8 thou/uL (4.0-11.0)
[2019-04-16 03:17] LABS: MCHC 34.8 g/dL (28.0-37.0); MCV 83.7 fL (80.0-100.0); RDW-CV 15.9 % (10.5-14.5)
[2019-04-16 03:19] LABS: CALCIUM 7.3 mg/dL (8.5-10.1); CREATININE 0.7 mg/dL (0.6-1.3); HEMATOCRIT 17.3 % (37.0-47.0); MAGNESIUM 1.3 mg/dL (1.8-2.4); POTASSIUM 3.6 mmol/L (3.5-5.1)
--- NOTE | 2019-04-16 06:02 | NUR ---
ASSUMED CARE OF PATIENT AT APPROX 1930. ALERT AND ORIENTED X4. ASSESSMENT COMPLETED AND CHARTED. VSS ON ROOM AIR. PATIENT HAD NO COMPLAINTS THIS SHIFT, BUT FRUSTRATED WITH HER PLAN OF CARE HERE. BLOOD TRANSFUSED ORDERED, HGB REMAINS BELOW 7. PATIENT UP AD JAJA AND DOING ALL CARES FOR ILEOSTOMY. DARK STOOLS NOTED. CALL LIGHT WITHIN REACH. HOURLY ROUNDS COMPLETED. WILL CONTINUE WITH PLAN OF CARE.
[2019-04-16 10:38] LABS: RBC 1.54 mil/uL (4.20-5.00)
[2019-04-16 10:40] LABS: MCH 29.1 pg (26.0-34.0); MCHC 34.3 g/dL (28.0-37.0); MCV 84.9 fL (80.0-100.0); MPV 7.3 fl. (7.2-11.1); RDW-CV 16.9 % (10.5-14.5); WBC 6.5 thou/uL (4.0-11.0)
[2019-04-16 10:42] LABS: HEMATOCRIT 13.1 % (37.0-47.0); HEMOGLOBIN 4.5 gm/dL (12.0-15.0)
[2019-04-16 11:43] LABS: EOSINOPHILS 0.4 %; HEMATOCRIT 22.1 % (37.0-47.0)
[2019-04-16 11:45] LABS: ABSOLUTE BASOPHILS 0.1 thou/uL (0.0-0.2); ABSOLUTE LYMPHOCYTES 0.5 thou/uL (0.8-5.3); ABSOLUTE MONOCYTES 0.1 thou/uL (0.0-1.2); ABSOLUTE NEUTROPHILS 10.8 thou/uL (1.6-8.1); BASOPHILS 0.7 %; LYMPHOCYTES 4.5 %; MCH 28.3 pg (26.0-34.0); MCHC 34.1 g/dL (28.0-37.0); MONOCYTES 1.1 %; MPV 7.7 fl. (7.2-11.1); NUCLEATED RBCS 12 /100WBC; POLYS 93.3 %; RBC 2.66 mil/uL (4.20-5.00); RDW-CV 17.1 % (10.5-14.5); WBC 11.6 thou/uL (4.0-11.0)
[2019-04-16 11:48] LABS: HEMOGLOBIN 7.5 gm/dL (12.0-15.0)
[2019-04-16 11:52] LABS: PLATELET COUNT* 25 thou/uL (150-400)
--- NOTE | 2019-04-16 12:52 | NUR ---
Spoke with , Pt will likely be ready to dc this weekend. No needs anticipated.
--- NOTE | 2019-04-16 17:54 | NUR ---
VSS, ASSUMED CARE IN THE AM, ASSESSMENT PERFORMED AND CHARTED, FALL PRECAUTIONS IN PLACE AND CALL LIGHT IN REACH, PT IS A&O4, ON RA, TRACING SR ON THE MONITOR, PT IS UP AD JAJA, AND DENIES ANY PAIN, PT GOAL IS TO COMPLETE BLOOD TRANS, WILL FOLLOW WITH PLAN OF CARE,
[2019-04-16 18:28] LABS: HEMATOCRIT 25.6 % (37.0-47.0); HEMOGLOBIN 8.9 gm/dL (12.0-15.0); MCH 28.3 pg (26.0-34.0); MCHC 34.6 g/dL (28.0-37.0); MCV 81.8 fL (80.0-100.0); RBC 3.12 mil/uL (4.20-5.00); RDW-CV 17.2 % (10.5-14.5)
[2019-04-17] VITALS: BP 98/34
--- NOTE | 2019-04-17 00:56 | NUR ---
INITAL ASSESMENT COMPLETED AT 2100. PT ASKED WHEN DOCTOR WAS GOING TO RELEASE HER HOME TONIGHT. PAGED LUGGAGE LINER PHYSICAN. SPOKE TO DR CLEMENTE WHO SAID PT NEEDS TO REMAIN IN HOSPITAL TONIGHT.
[2019-04-17 04:00] VITALS: BP 112/47
[2019-04-17 05:19] LABS: HEMATOCRIT 23.4 % (37.0-47.0); MCH 28.6 pg (26.0-34.0); MCHC 34.4 g/dL (28.0-37.0); MPV 7.9 fl. (7.2-11.1); RBC 2.82 mil/uL (4.20-5.00); RDW-CV 17.7 % (10.5-14.5); WBC 9.3 thou/uL (4.0-11.0)
[2019-04-17 05:38] LABS: ALBUMIN 2.3 g/dL (3.4-5.0); CALCIUM 7.5 mg/dL (8.5-10.1); CREATININE 0.8 mg/dL (0.6-1.3); MAGNESIUM 1.4 mg/dL (1.8-2.4); POTASSIUM 3.9 mmol/L (3.5-5.1); TOTAL BILIRUBIN 0.6 mg/dL (<0.1-1.0); TOTAL PROTEIN 6.4 g/dL (6.4-8.2)
[2019-04-17 08:30] VITALS: BP 114/50
[2019-04-17 12:11] VITALS: BP 102/60
[2019-04-17 16:23] VITALS: BP 97/58
[2019-04-17 20:00] VITALS: BP 105/50
[2019-04-18] VITALS (7 sets, daily range): BP systolic 105–120; BP diastolic 41–71
--- NOTE | 2019-04-18 02:30 | NUR ---
PT ALERT ORIENTED. UP AD JAJA IN ROOM. ON RA. R CHEST PORT. OXICODONE GIVEN FOR PAIN. TELEMETRY SHOWS SR. LUPILLO.
[2019-04-18 11:35] LABS: HEMOGLOBIN 8.1 gm/dL (12.0-15.0); MCHC 34.1 g/dL (28.0-37.0); WBC 8.3 thou/uL (4.0-11.0)
[2019-04-18 11:37] LABS: HEMATOCRIT 23.8 % (37.0-47.0); MCH 28.3 pg (26.0-34.0); MCV 83.1 fL (80.0-100.0); MPV 8.3 fl. (7.2-11.1); NUCLEATED RBCS 14 /100WBC; RBC 2.86 mil/uL (4.20-5.00); RDW-CV 18.3 % (10.5-14.5)
[2019-04-18 11:39] LABS: PLATELET COUNT* 11 thou/uL (150-400)
[2019-04-18 14:24] LABS: ABSOLUTE LYMPHOCYTES 2.5 thou/uL (0.8-5.3); ABSOLUTE MONOCYTES 2.6 thou/uL (0.0-1.2); ABSOLUTE NEUTROPHILS 3.2 thou/uL (1.6-8.1); ATYPICAL LYMPHS 3 %; BLASTS 1 %; METAMYELOCYTES 4 %; MYELOCYTES 1 %; PLATELET ESTIMATE DECREASED
[2019-04-18 14:26] LABS: ANISOCYTOSIS 1+; OVALOCYTES 1+
--- NOTE | 2019-04-18 15:47 | NUR ---
ASSUSMED CARE OF PT APPROX 0730. REASSESSMENT COMPLETED CHARTED MEDICATIONS GIVEN CHARTED. CRITICAL LABS RECIEVED THIS AFTERNOON, REPORTED TO PHYSICAN.PT UP TO WHEELCHAIR WITH WALKING AROUND THE UNIT THIS AFTERNOON. SAFTEY PRECAUTIONS IN PLACE. HOURLY ROUNDING.
[2019-04-19] VITALS (8 sets, daily range): BP systolic 102–130; BP diastolic 45–78
[2019-04-19 05:35] LABS: HEMOGLOBIN 7.8 gm/dL (12.0-15.0); WBC 7.3 thou/uL (4.0-11.0)
[2019-04-19 05:37] LABS: HEMATOCRIT 22.3 % (37.0-47.0); MCH 28.9 pg (26.0-34.0); MCHC 35.2 g/dL (28.0-37.0); MCV 82.3 fL (80.0-100.0); RBC 2.71 mil/uL (4.20-5.00); RDW-CV 17.7 % (10.5-14.5)
--- NOTE | 2019-04-19 05:46 | NUR ---
TRANSFUSED 2 UNITS OF PLATLETS THIS SHIFT ON PATIENT. PATIENT RESTING COMFORTABLY IN BED THROUGHOUT THE SHIFT. CURRENTLY AWAITNG RESULTS OF PATIENT'S CBC TO BE RETURNED. PLAN FOR PATIENT TO DISCHARGE ON DAYSHIFT TODAY.
--- NOTE | 2019-04-19 16:52 | NUR ---
DR. CANAS INSTRUCT THAT NO NEED TO CHECK H/H AFTER TRANDSFUSION AND TO RECHECK IN THE AM.
--- NOTE | 2019-04-19 19:23 | NUR ---
PT STATES SHE EMPTIOED HER COLOSTOMY X3.
[2019-04-20 00:24] VITALS: BP 140/58
--- NOTE | 2019-04-20 04:28 | NUR ---
ASSUMED CARE AT 1900H, ON RA AND TOLERATED.NO BLOOD ON HER ILEOSTOMY NOTED.FOR DISCHARGE THIS AM.CONTINUE CARING AND TOWARD GOALS.
[2019-04-20 04:36] VITALS: BP 134/72
[2019-04-20 05:50] LABS: HEMATOCRIT 29.9 % (37.0-47.0); MCH 28.4 pg (26.0-34.0); MCHC 34.5 g/dL (28.0-37.0); MCV 82.2 fL (80.0-100.0); MPV 8.4 fl. (7.2-11.1); RBC 3.63 mil/uL (4.20-5.00); WBC 7.7 thou/uL (4.0-11.0)
[2019-04-20 05:53] LABS: HEMOGLOBIN 10.3 gm/dL (12.0-15.0)
[2019-04-20 11:04] VITALS: BP 124/68
--- NOTE | 2019-04-20 13:39 | NUR ---
PT REFUSING TELE.
--- NOTE | 2019-04-20 13:51 | NUR ---
SPOKE WITH DR. ADAMS AND JAMES TO DISCHARGE PT TO HOME. WILL GIVE ONE MORE DOSE OF MG+ PO AND DISCHARGE TO HOME.
[2019-04-20 14:10] VITALS: BP 124/68
--- NOTE | 2019-04-20 16:03 | NUR ---
IMPLANTED PORT RIGHT CHEST DEACCESSED. PT UNDERSTANDS ALL FOLLOW UP ORDERS. TELE A DISCONTINUED. WILL DISCHAGRE TO HOME.
== END 2019-04-20 16:30 | disposition home or self-care (01) | DRG 378 ==
LOC: M.ERS 03:33 → M.TBA-ER 05:42 → M.2W 05:42
PROVIDERS: Emergency Medicine; Internal Medicine; Internal Medicine Hematology & Oncology; ADMIT Family Medicine
PROC: 30233N1 Transfusion of Nonautologous Red Blood Cells into Peripheral Vein, Percutaneous Approach (ICD-10-PCS; principal; 2019-04-14)
PROC: 30233R1 Transfusion of Nonautologous Platelets into Peripheral Vein, Percutaneous Approach (ICD-10-PCS; 2019-04-15)
DX: K92.2 Gastrointestinal hemorrhage, unspecified (principal); E44.1 Mild protein-calorie malnutrition; D62 Acute posthemorrhagic anemia; D69.3 Immune thrombocytopenic purpura; D46.9 Myelodysplastic syndrome, unspecified; F17.210 Nicotine dependence, cigarettes, uncomplicated; D69.6 Thrombocytopenia, unspecified; D53.9 Nutritional anemia, unspecified; Z90.710 Acquired absence of both cervix and uterus; Z79.2 Long term (current) use of antibiotics; Z90.89 Acquired absence of other organs; Z90.49 Acquired absence of other specified parts of digestive tract; Z93.2 Ileostomy status; Z79.891 Long term (current) use of opiate analgesic; Z79.899 Other long term (current) drug therapy; Z88.8 Allergy status to other drugs, medicaments and biological substances; Z68.32 Body mass index [BMI] 32.0-32.9, adult

== ENCOUNTER 2019-05-16 17:10 | Inpatient (IN) | payer MEDICARE ==
[~2019-05-16] VITALS: Ht 165.1 cm; Wt 83.9 kg
[~2019-05-16 17:10] MED LIST changes: +ERYTHROMYCIN500 MG PO
[2019-05-16 17:15] VITALS: BP 115/67
[2019-05-16 18:46] LABS: MCV 85.2 fL (80.0-100.0); RBC 1.46 mil/uL (4.20-5.00); RDW-CV 17.1 % (10.5-14.5)
[2019-05-16 18:48] LABS: MCH 29.4 pg (26.0-34.0); MCHC 34.5 g/dL (28.0-37.0); MPV 12.4 fl. (7.2-11.1); NUCLEATED RBCS 8 /100WBC; WBC 15.8 thou/uL (4.0-11.0)
[2019-05-16 18:52] LABS: HEMATOCRIT 12.4 % (37.0-47.0); HEMOGLOBIN 4.3 gm/dL (12.0-15.0); PLATELET COUNT* 4 thou/uL (150-400)
[2019-05-16 19:00] LABS: ALBUMIN 2.8 g/dL (3.4-5.0); CALCIUM 7.8 mg/dL (8.5-10.1); CREATININE 0.9 mg/dL (0.6-1.3); POTASSIUM 4.9 mmol/L (3.5-5.1); TOTAL BILIRUBIN 0.7 mg/dL (<0.1-1.0); TOTAL PROTEIN 7.3 g/dL (6.4-8.2)
[2019-05-16 19:11] LABS: INR 2.1; PROTIME 21.3 Seconds (9.20-11.50)
[2019-05-16 19:13] LABS: APTT > 198.4 Seconds (25.0-31.3)
[2019-05-16 21:17] LABS: ABSOLUTE BASOPHILS 0.5 thou/uL (0.0-0.2); ABSOLUTE LYMPHOCYTES 1.6 thou/uL (0.8-5.3); ABSOLUTE MONOCYTES 0.2 thou/uL (0.0-1.2); ATYPICAL LYMPHS 2 %; BLASTS 23 %; METAMYELOCYTES 7 %; MYELOCYTES 5 %; PROMYELOCYTES 7 %
[2019-05-16 21:18] LABS: HYPOCHROMASIA 2+; MICROCYTES 2+; PLATELET ESTIMATE DECREASED
[2019-05-16 23:36] VITALS: BP 120/58
[2019-05-17 00:59] VITALS: BP 103/46; BP 105/46; BP 106/49; BP 112/46
[2019-05-17 05:50] LABS: HEMATOCRIT 19.2 % (37.0-47.0); HEMOGLOBIN 6.7 gm/dL (12.0-15.0)
[2019-05-17 08:00] VITALS: BP 111/56
[2019-05-17 10:11] VITALS: BP 104/68; BP 109/64; BP 111/76; BP 118/56
[2019-05-17 11:51] LABS: URINE BILIRUBIN NEGATIVE (Negative); URINE BLOOD TRACE (Negative); URINE CLARITY CLEAR; URINE COLOR YELLOW; URINE GLUCOSE-RANDOM NEGATIVE (Negative); URINE KETONES NEGATIVE (Negative); URINE LEUKOCYTES-REFLEX NEGATIVE (Negative); URINE NITRITE-REFLEX NEGATIVE (Negative); URINE PROTEIN NEGATIVE (Negative); URINE UROBILINOGEN 0.2 E.U./dl (0.2-1.0)
[2019-05-17 12:00] VITALS: BP 111/76
[2019-05-17 14:29] LABS: HEMATOCRIT 20.4 % (37.0-47.0); HEMOGLOBIN 7.2 gm/dL (12.0-15.0); MCHC 35.3 g/dL (28.0-37.0); MCV 87.9 fL (80.0-100.0)
[2019-05-17 14:30] LABS: MPV 12.7 fl. (7.2-11.1); RBC 2.31 mil/uL (4.20-5.00); RDW-CV 16.8 % (10.5-14.5)
[2019-05-17 14:33] LABS: PLATELET COUNT* < 3 thou/uL (150-400)
[2019-05-17 16:00] VITALS: BP 119/52
[2019-05-17 20:00] VITALS: BP 117/61
[2019-05-18] VITALS (7 sets, daily range): BP systolic 85–129; BP diastolic 42–75
[2019-05-18 05:16] LABS: MCH 31.6 pg (26.0-34.0); MCV 87.5 fL (80.0-100.0); MPV 8.1 fl. (7.2-11.1); RBC 2.1 mil/uL (4.20-5.00); RDW-CV 17.1 % (10.5-14.5); WBC 12.3 thou/uL (4.0-11.0)
[2019-05-18 05:24] LABS: HEMATOCRIT 18.4 % (37.0-47.0); HEMOGLOBIN 6.6 gm/dL (12.0-15.0)
[2019-05-18 05:31] LABS: ALBUMIN 2.3 g/dL (3.4-5.0); CALCIUM 7.1 mg/dL (8.5-10.1); CREATININE 0.8 mg/dL (0.6-1.3); MAGNESIUM 1.5 mg/dL (1.8-2.4); POTASSIUM 4.2 mmol/L (3.5-5.1); TOTAL BILIRUBIN 0.6 mg/dL (<0.1-1.0); TOTAL PROTEIN 6.3 g/dL (6.4-8.2)
[2019-05-18 09:08] LABS: HEMOGLOBIN 4.2 g/dL (11.1-15.9)
[2019-05-19 01:06] LABS: HEMOGLOBIN 7.8 gm/dL (12.0-15.0)
[2019-05-19 05:33] LABS: WBC 12.7 thou/uL (4.0-11.0)
[2019-05-19 05:36] LABS: HEMATOCRIT 22.3 % (37.0-47.0); HEMOGLOBIN 7.9 gm/dL (12.0-15.0); MCH 31.4 pg (26.0-34.0); MCHC 35.5 g/dL (28.0-37.0); MCV 88.4 fL (80.0-100.0); MPV 7.3 fl. (7.2-11.1); RBC 2.52 mil/uL (4.20-5.00); RDW-CV 15.7 % (10.5-14.5)
[2019-05-19 05:53] LABS: ALBUMIN 2.6 g/dL (3.4-5.0); CALCIUM 7.4 mg/dL (8.5-10.1); CREATININE 0.8 mg/dL (0.6-1.3); MAGNESIUM 1.5 mg/dL (1.8-2.4); POTASSIUM 3.8 mmol/L (3.5-5.1); TOTAL BILIRUBIN 0.5 mg/dL (<0.1-1.0); TOTAL PROTEIN 6.6 g/dL (6.4-8.2)
[2019-05-19 07:40] VITALS: BP 102/47
[2019-05-19 13:17] VITALS: BP 105/50; BP 110/66; BP 112/58; BP 113/67; BP 116/58
--- NOTE | 2019-05-19 13:56 | EKG ---
[place] [address] ELECTROCARDIOGRAM REPORT Name: JOSE MANUEL THOMAS Room: [address] IN M.R.#: [id number] Admission: 05/16/19 Attend Phys: Layne Escalante, Discharge: Date of : 51 Date of Service: 05/16/19 1843 Report #: [id number] THIS REPORT FOR: cc: Bandar Tinsley MD, Brian M. MD Holkins,Alvaro Lopes MD [facility] ~ THIS REPORT FOR: //name// [facility] ED Test Date: 2019-05-16 Test Time: 18:43:48 Pat Name: JOSE MANUEL THOMAS Department: Room: [facility] Gender: F [place] Operator: : 1955 Requested By: Alisha Hunt Order Number: [id number] MD: Alvaro Han Measurements Intervals [place] Rate: 84 P: 51 [place]: 132 QRS: 33 QRSD: 84 T: 17 QT: 416 QTc: 492 Interpretive Statements Sinus rhythm Low voltage, precordial leads Abnormal R-wave progression, early transition Borderline prolonged QT interval Compared to ECG 04/14/2019 03:51:39 T-wave abnormality no longer present Electronically Signed On 05-17-2019 16:05:57 PRESSURIZER by Alvaro Han [email or web address] <ELECTRONICALLY SIGNED> By: Alvaro Han MD, [facility] 05/17/19 1605 42 184 Alvaro Han MD, [facility] /EPI
[2019-05-19 20:15] VITALS: BP 105/46
[2019-05-20 03:16] LABS: HEMATOCRIT 25.8 % (37.0-47.0); MCV 88.5 fL (80.0-100.0); MPV 7.4 fl. (7.2-11.1); RBC 2.91 mil/uL (4.20-5.00); RDW-CV 16.9 % (10.5-14.5); WBC 15.8 thou/uL (4.0-11.0)
[2019-05-20 03:23] LABS: CALCIUM 7.4 mg/dL (8.5-10.1); CREATININE 0.8 mg/dL (0.6-1.3); POTASSIUM 3.9 mmol/L (3.5-5.1)
[2019-05-20 08:01] VITALS: BP 118/58
[2019-05-20 11:53] VITALS: BP 109/54; BP 113/62
[2019-05-20 13:00] VITALS: BP 118/58
== END 2019-05-20 14:18 | disposition home or self-care (01) | DRG 812 ==
LOC: M.ERS 17:10 → M.TBA-ER 22:11 → M.2W 22:11 → M.3W 05-17 15:26
PROVIDERS: Physician Assistant; ADMIT Internal Medicine
PROC: 30233N1 Transfusion of Nonautologous Red Blood Cells into Peripheral Vein, Percutaneous Approach (ICD-10-PCS; principal; 2019-05-16)
PROC: 30233R1 Transfusion of Nonautologous Platelets into Peripheral Vein, Percutaneous Approach (ICD-10-PCS; 2019-05-18)
DX: D46.22 Refractory anemia with excess of blasts 2 (principal); E44.1 Mild protein-calorie malnutrition; D69.6 Thrombocytopenia, unspecified; R04.0 Epistaxis; F17.210 Nicotine dependence, cigarettes, uncomplicated; B30.3 Acute epidemic hemorrhagic conjunctivitis (enteroviral); Z66 Do not resuscitate; D46.9 Myelodysplastic syndrome, unspecified; Z90.710 Acquired absence of both cervix and uterus; Z90.49 Acquired absence of other specified parts of digestive tract; Z93.2 Ileostomy status; Z98.891 History of uterine scar from previous surgery; Z79.899 Other long term (current) drug therapy; Z88.8 Allergy status to other drugs, medicaments and biological substances; Z72.89 Other problems related to lifestyle; Z68.30 Body mass index [BMI] 30.0-30.9, adult

== ENCOUNTER 2019-05-24 20:45 | Inpatient (IN) | payer MEDICARE ==
[~2019-05-24] VITALS: Ht 165.1 cm; Wt 84.2 kg
[2019-05-24 20:52] VITALS: BP 114/33
[2019-05-24 22:12] LABS: MCHC 31.1 g/dL (28.0-37.0)
[2019-05-24 22:15] LABS: HEMATOCRIT 28.1 % (37.0-47.0); HEMOGLOBIN 8.7 gm/dL (12.0-15.0); MCH 28.4 pg (26.0-34.0); MCV 91.3 fL (80.0-100.0); MPV 7.3 fl. (7.2-11.1); NUCLEATED RBCS 5 /100WBC; RBC 3.08 mil/uL (4.20-5.00); RDW-CV 17.7 % (10.5-14.5)
[2019-05-24 22:16] LABS: PLATELET COUNT* 16 thou/uL (150-400); WBC 102.3 thou/uL (4.0-11.0)
[2019-05-24 22:22] LABS: CALCIUM 8.2 mg/dL (8.5-10.1); CREATININE 1.8 mg/dL (0.6-1.3); POTASSIUM 4.4 mmol/L (3.5-5.1)
[2019-05-24 22:26] LABS: ALBUMIN 2.6 g/dL (3.4-5.0); TOTAL BILIRUBIN 0.9 mg/dL (<0.1-1.0); TOTAL PROTEIN 7.4 g/dL (6.4-8.2)
[2019-05-25] VITALS (7 sets, daily range): BP systolic 0–156; BP diastolic 0–127
[2019-05-25 00:18] LABS: ABSOLUTE MONOCYTES 11.3 thou/uL (0.0-1.2); METAMYELOCYTES 10 %; MYELOCYTES 8 %
[2019-05-25 00:19] LABS: BLASTS 1 %; PROMYELOCYTES 3 %
[2019-05-25 00:20] LABS: PLATELET ESTIMATE DECREASED
[2019-05-25 00:21] LABS: ANISOCYTOSIS 1+; POLYCHROMASIA 1+
--- NOTE | 2019-05-25 07:07 | NUR ---
BG 'LO' X3, TREATED WITH 1 AMP D50 IVP EACH TIME. CRITICAL LACTIC RESULTS X2 COMMUNICATED TO DR DENNIS. PT BECOMING INCREASINGLY WEAK WITHIN THE LAST HOUR, RESPIRATIONS BECOMING AGONAL IN APPEARANCE DESPITE ADEQUATE O2 SAT >92%. PT DROWSY BUT AROUSABLE AND ORIENTED. PT VERBALIZED TO THIS RN "I DON'T WANT TO DO THIS ANYMORE. I JUST WANT TO BE COMFORTABLE. CAN THEY STOP TREATMENTS?" PT INFORMED THAT IF WE STOP TREATMENTS SHE WILL LIKELY PASS AWAY, ASKED PT IF SHE UNDERSTAND AND STILL WANTS TO STOP TREATMENTS. PT COMFIRMED THIS WISH TO THIS RN, JOSEFINA RIOS, CATHERINE, AND DR DENNIS. DR DENNIS ON UNIT AT THIS TIME AND SPOKE TO VIA PHONE; ORDERS RECEIVED FOR COMFORT CARE.
--- NOTE | 2019-05-25 07:49 | NUR ---
PT REQUESTING TO "JUST BE COMFORTABLE" ASKED PT IF SHE UNDERSTOOD THAT WITH COMFORT MEASURES, SHE WOULD PROBABLY PASS TODAY. PT VERBALIZED UNDERSTANDING AND CONTINUES WITH WISHES TO BE COMFORTABLE AND WITHDRAWAL CARE. PHYSICIAN NOTIFIED.
--- NOTE | 2019-05-25 08:55 | NUR ---
ASSUMED CARE OF PT AT 0700 SPEAKING BUT HAVING NAI HOGUE. PT WANTS COMFORT CARE. UNABLE TO OBTAIN VITAL SIGNS. DECLARED BY MYSELF AND JOSEFINA RIOS RN. DR HOSKINS NOTIFIED.
--- NOTE | 2019-05-25 11:24 | NUR ---
CM DID NOT SEE PT TODAY. PT AT 0730. [facility] TO PICK PT UP
--- NOTE | 2019-05-25 11:41 | EKG ---
[place] [address] ELECTROCARDIOGRAM REPORT Name: JOSE MANUEL THOMAS Room: [address] ADM IN M.R.#: [id number] Admission: 05/25/19 Attend Phys: Rikki Nieves, Discharge: Date of : 51 Date of Service: 05/24/192103 Report #: [id number] THIS REPORT FOR: //name// [facility] ED Test Date: 2019-05-24 Test Time: 21:04:34 Pat Name: JOSE MANUEL THOMAS Department: Room: [address] Gender: F Cash Application Clerk: [place] : 1955 Requested By: Kaelyn Medrano Order Number: [id number] MD: Alvaro Han Measurements Intervals [place] Rate: 130 P: 59 [place]: 92 QRS: 47 QRSD: 69 T: 16 QT: 398 QTc: 586 Interpretive Statements Sinus tachycardia Low voltage, precordial leads Prolonged QT interval Compared to ECG 05/16/2019 18:43:48 Sinus rate has increased Electronically Signed On 05-25-2019 11:40:47 ELECTRIC HOIST OPERATOR by Alvaro Han [email or web address] <ELECTRONICALLY SIGNED> By: Alvaro Han MD, [facility] 05/25/19 1140 03 03 Alvaro Han MD, [facility] /EPI
[2019-05-25 14:10] LABS: HEMOGLOBIN 7.6 g/dL (11.1-15.9)
== END 2019-05-25 07:34 | DRG 871 ==
LOC: M.ERS 20:45 → M.TBA-ER 05-25 01:52 → M.ICU 05-25 01:52
PROVIDERS: Emergency Medicine; ADMIT Internal Medicine
DX: A41.9 Sepsis, unspecified organism (principal); J96.00 Acute respiratory failure, unspecified whether with hypoxia or hypercapnia; R65.21 Severe sepsis with septic shock; E87.2 Acidosis; N17.9 Acute kidney failure, unspecified; L03.311 Cellulitis of abdominal wall; K94.12 Enterostomy infection; D69.6 Thrombocytopenia, unspecified; Z66 Do not resuscitate; F17.210 Nicotine dependence, cigarettes, uncomplicated; Y83.3 Surgical operation with formation of external stoma as the cause of abnormal reaction of the patient, or of later complication, without mention of misadventure at the time of the procedure; D46.9 Myelodysplastic syndrome, unspecified; Z79.899 Other long term (current) drug therapy; Z88.8 Allergy status to other drugs, medicaments and biological substances; Z90.710 Acquired absence of both cervix and uterus; Z90.49 Acquired absence of other specified parts of digestive tract; Y92.89 Other specified places as the place of occurrence of the external cause